=== PATIENT | male | born 2000 | race African-American/Black ===

== ENCOUNTER 2022-10-06 16:57 | Emergency (ER) | payer SELFPAY ==
[2022-10-06 19:12] LABS: CORONAVIRUS COVID-19 NAA NEGATIVE (NEGATIVE); INFLUENZA A NAA POSITIVE (NEGATIVE); INFLUENZA B NAA NEGATIVE (NEGATIVE)
== END 2022-10-06 20:10 | disposition home or self-care (01) ==
LOC: MW.ED 16:57
DX: J10.1 Influenza due to other identified influenza virus with other respiratory manifestations (principal); Z20.822 Contact with and (suspected) exposure to COVID-19
CPT/HCPCS: 0240U; 87651; 99283